=== PATIENT | male | born 1970 | race Caucasian/White ===

== ENCOUNTER 2024-01-18 05:35 | Emergency (ER) | payer BC ==
[~2024-01-18] VITALS: Ht 177.8 cm; Wt 81.6 kg
[2024-01-18 05:48] VITALS: BP 138/76; TEMP 98.1; O2SAT 97
[2024-01-18] MEDS ORDERED: TDAP [DIPH/PERTUSSIS/TET] 0.5 ML VIAL IM ONE (05:58)
[2024-01-18] MEDS ORDERED: AMOX-430 PO (06:00)
[2024-01-18] MEDS: TDAP [DIPH/PERTUSSIS/TET] 0.5 ML VIAL IM ONE (06:01)
== END 2024-01-18 06:24 | disposition home or self-care (01) ==
LOC: ER 05:40
DX: S61.432A Puncture wound without foreign body of left hand, initial encounter (principal); S61.431A Puncture wound without foreign body of right hand, initial encounter; W55.01XA Bitten by cat, initial encounter; Y93.89 Activity, other specified; Y92.89 Other specified places as the place of occurrence of the external cause; Y99.8 Other external cause status
CPT/HCPCS: 90715